=== PATIENT | female | born 1985 | race Two or more races ===

== ENCOUNTER 2017-11-10 10:40 | Emergency (ER) | payer MEDICAID, OTHER ==
[~2017-11-10] VITALS: Ht 157.5 cm; Wt 72.6 kg
[2017-11-10] MEDS ORDERED: HALOPERIDOL LACTATE 5 MG/ML INJ VIAL IM ONE (10:45)
[2017-11-10] MEDS ORDERED: diphenhdrAMINE HCL 50 MG/1 ML VL IM ONE (10:45)
[2017-11-10] MEDS ORDERED: LORazepam 2MG/ML-1ML VIAL IM ONE (10:45)
[2017-11-10 11:11] LABS: Basophils # (auto) 0.1 uL; Basophils % (auto) 0.6 % (0.0-2.0); Eosinophils # (auto) 0.2 uL; Mean Corpuscular Volume 75.9 fL (80.0-100.0); Monocytes # (auto) 0.8 uL
[2017-11-10 11:13] LABS: Eosinophils % (auto) 1.6 % (0.0-7.0); Hematocrit 38.8 % (36.0-46.0); Hemoglobin 12.6 g/dL (12.2-16.2); Lymphocytes # (auto) 3.1 uL; Lymphocytes % (auto) 26.6 % (10.0-50.0); Mean Corpuscular Hemoglobin 24.5 pg (28.0-32.0); Mean Corpuscular Hgb Conc. 32.3 g/dL (32.0-36.0); Monocytes % (auto) 6.8 % (0.0-12.0); Neutrophils # (auto) 7.6 uL; Neutrophils % (auto) 64.4 % (37.0-80.0); Platelet Count (auto) 298 10^3/uL (140-450); Red Blood Cells 5.11 10^6/uL (4.0-5.20); Red Cell Distribution Width 15.7 % (11.8-14.3); White Blood Cell 11.8 10^3/uL (4.4-10.8)
[2017-11-10 11:27] LABS: Anion Gap 14 (5-15); BUN/Creatinine Ratio 9.9; Blood Alcohol < 3.0 mg/dL (0-5); Blood Urea Nitrogen 12 mg/dL (7-18); Carbon Dioxide 20 mmol/L (21-32); Chloride 106 mmol/L (98-107); GFR African American 66 mL/min; GFR Non-African American 55 mL/min; Glucose 101 mg/dL (74-106); Potassium 3.1 mmol/L (3.5-5.1); Sodium 140 mmol/L (136-145)
[2017-11-10] MEDS: POTASSIUM CHL 20MEQ/100ML 100 ML IV SCH ×2 (18:30→20:30)
[2017-11-10] MEDS ORDERED: cefTRIAXone 1GM/10ml IVPUSH 10 ML IV ONE (18:30)
[2017-11-10 19:54] LABS: Urine Bacteria NONE SEEN /hpf (None Seen); Urine Blood TRACE /uL (Negative); Urine Mucus MODERATE (None Seen); Urine Specific Gravity 1.028 (1.001-1.035); Urine WBC 3 /hpf (0 - 5)
[2017-11-10 20:09] LABS: Alcohol, Urine < 3.0 mg/dL (0-5); Amphetamine Screen, Urine POSITIVE (NEGATIVE); Barbiturate Scree,Urine NEGATIVE (NEGATIVE); Benzodiazephine Screen, Urine POSITIVE (NEGATIVE); Cannabinoid Screen, Urine NEGATIVE (NEGATIVE); Cocaine Screen, Urine NEGATIVE (NEGATIVE); Opiate Scree,Urine NEGATIVE (NEGATIVE); Phencyclidine Screen, Urine NEGATIVE (NEGATIVE)
[2017-11-10 20:10] LABS: Acetaminophen < 2.0 ug/mL (10-30); Salicylate < 1.7 mg/dL (2.8-20.0)
[2017-11-11 05:13] LABS: Basophils # (auto) 0.1 uL; Basophils % (auto) 0.5 % (0.0-2.0); Eosinophils # (auto) 0.4 uL; Mean Corpuscular Hemoglobin 24.5 pg (28.0-32.0); Monocytes # (auto) 0.6 uL
[2017-11-11 05:15] LABS: Eosinophils % (auto) 3.4 % (0.0-7.0); Hematocrit 37.2 % (36.0-46.0); Mean Corpuscular Hgb Conc. 32.3 g/dL (32.0-36.0); Monocytes % (auto) 5.6 % (0.0-12.0); Neutrophils # (auto) 8.2 uL; Neutrophils % (auto) 72.5 % (37.0-80.0); Nucleated Red Blood Cells % 0.1 %; Platelet Count (auto) 246 10^3/uL (140-450); Red Blood Cells 4.89 10^6/uL (4.0-5.20); Red Cell Distribution Width 15.6 % (11.8-14.3); White Blood Cell 11.3 10^3/uL (4.4-10.8)
[2017-11-11 05:34] LABS: Albumin 3.2 g/dL (3.4-5.0); BUN/Creatinine Ratio 17.5; Bilirubin, Total 0.7 mg/dL (0.2-1.0); Calcium 8.3 mg/dL (8.5-10.1); Potassium 3.3 mmol/L (3.5-5.1); Total Protein 7.3 g/dL (6.4-8.2)
[2017-11-11] MEDS ORDERED: SODIUM CHLORIDE 0.9% 1,000 ML IV ONE ×2 (09:45)
[2017-11-11] MEDS ORDERED: POTASSIUM CHL 20 Meq TABLET PO ONE (10:30)
[2017-11-11 18:09] VITALS: BP 102/65
== END 2017-11-11 19:12 | disposition home or self-care (01) ==
LOC: ER 10:40
DX: R41.82 Altered mental status, unspecified (principal)
CPT/HCPCS: 36415; 80048; 80053; 80307; 80320; 80329; 81001; 81025; 85025; 96365; 96366; 96372; 96375; 99285; J1200; J1630; J2060; J3480

== ENCOUNTER 2023-12-01 14:27 | Emergency (ER) | payer MEDICAID ==
[~2023-12-01] VITALS: Ht 154.9 cm; Wt 57.0 kg
[2023-12-01 15:45] VITALS: BP 121/82; PULSE 84; RESP 12; TEMP 99.7; O2SAT 100
[2023-12-01] MEDS: OLANZapine 5 MG TAB PO ONE (15:51)
== END 2023-12-01 17:40 | disposition left against medical advice (07) ==
LOC: EDBD 14:27 → ER 14:31
DX: F23 Brief psychotic disorder (principal); M25.572 Pain in left ankle and joints of left foot; I10 Essential (primary) hypertension; F17.210 Nicotine dependence, cigarettes, uncomplicated; F12.10 Cannabis abuse, uncomplicated
CPT/HCPCS: 36415; 73610; 80320; 84702; 99284; J7030; J7040

== ENCOUNTER 2023-12-15 05:11 | Emergency (ER) | payer MEDICAID ==
[~2023-12-15] VITALS: Ht 167.6 cm; Wt 70.0 kg
[2023-12-15 05:11] VITALS: TEMP 97.3
== END 2023-12-15 05:26 ==
LOC: ER 05:11 → EDUNIT# 05:11 → EDBD 05:11 → ER 05:26
DX: I46.9 Cardiac arrest, cause unspecified (principal); R06.89 Other abnormalities of breathing
CPT/HCPCS: 31500; 92950